=== PATIENT | female | born 1945 | race Hispanic/Latino ===

== ENCOUNTER → 2018-01-08 | Outpatient (CLI) | payer MEDICARE ==
[~2018-01-08] MED LIST: LEVOTHYROXINE88 MCG PO; LOSARTAN POTASS25 MG PO; MELOXICAM7.5 MG PO; OXYBUTYNIN CHLOR5 M1 PO; PRAVASTATIN SOD20 MG PO; TRIAMTERENE-HCTZ1 EA PO
--- NOTE | 2018-01-08 11:28 | Diagnostic Imaging Report ---
PROCEDURE:X-RAY PELVIS, AP VIEW COMPARISON:None. INDICATIONS:FEMALE GENITAL PROLAPSE FINDINGS: No acute, displaced fracture or dislocation. No osseous destructive lesions. Hip and sacroiliac joints are intact, as is the symphysis pubis. Pelvic stimulator device body is partially visualized projecting over the superolateral left iliac wing. Lead projects over the left hemipelvis. Soft tissues otherwise unremarkable. CONCLUSION: No acute osseous abnormality. Dictated by: Carmelo Rangel M.D. on 01/08/2018 at 11:33 Electronically approved by: Carmelo Rangel M.D. on 01/08/2018 at 11:33
--- NOTE | 2018-01-08 11:28 | Diagnostic Imaging Report ---
PROCEDURE:X-RAY LUMBAR SPINE, TWO VIEWS COMPARISON:None. INDICATIONS:FEMALE GENITAL PROLAPSE FINDINGS: There are 5 nonrib-bearing lumbar-type vertebral bodies. No acute displaced fracture or subluxation. Multilevel degenerative disc changes and facet arthropathy worse at L5-S1. Pelvic stimulator device lies within the subcutaneous fat of the left lower back. Lead terminates over the left hemipelvis. Sacroiliac joints are intact. Soft tissues otherwise unremarkable. CONCLUSION: Mild multilevel degenerative disc disease and facet arthropathy of the lumbar spine. Dictated by: Carmelo Rangel M.D. on 01/08/2018 at 11:32 Electronically approved by: Carmelo Rangel M.D. on 01/08/2018 at 11:32
== END ==
LOC: RAD 10:17
PROVIDERS: ATTEND Urology
DX: N81.89 Other female genital prolapse (principal); N95.2 Postmenopausal atrophic vaginitis
CPT/HCPCS: 72100; 72170

== ENCOUNTER → 2018-08-21 | Outpatient (CLI) | payer MEDICARE ==
--- NOTE | 2018-08-21 13:57 | Diagnostic Imaging Report ---
EXAM: SP LUMBAR, COMPLETE MIN 4VW DATE: 08/21/2018 10:35 AM INDICATION: Back pain COMPARISON: None FINDINGS: 5 views of the lumbar spine shows 5 lumbar type vertebrae. Lumbar body heights are maintained. There is narrowing of the L5-S1 disc space and there is grade 1 spondylolisthesis of L4 on L5. The bony fragment adjacent to the anterior superior corner of L5 is likely related to an ununited osteophyte. There is extensive facet sclerosis from L3 through S1. There is an electronic device implanted in the posterior soft tissues of the upper left pelvis with electrode extending through the midportion of the sacrum into the pelvis. IMPRESSION: No acute bony abnormality. 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 A pelvic stimulator electrode is seen. Signed by: Dr. Aurelio Nuñez M.D. on 08/21/2018 1:54 PM
--- NOTE | 2018-08-21 14:01 | Diagnostic Imaging Report ---
EXAM: PELVIS AP 1-2 VIEWS DATE: 08/21/2018 10:35 AM INDICATION: Genital prolapse COMPARISON: None FINDINGS: 2 views of the pelvis were obtained frontal and lateral. No acute bony abnormality is seen. A small sclerotic focus in the proximal left femur may represent a bone infarct. There are degenerative changes seen in the lower lumbar spine with grade 1 spondylolisthesis of L4 and L5. There is an implanted electronic device in the posterior soft tissues of the left pelvis with a stimulator lead extending into the left side of the pelvic cavity through the sacrum. This likely represents an InterStim device. IMPRESSION: No acute bony abnormality. Degenerative changes lower lumbar spine. Electronic device in the left pelvis. Signed by: Dr. Aurelio Nuñez M.D. on 08/21/2018 1:58 PM
== END ==
LOC: RAD 10:20
PROVIDERS: ATTEND Urology
DX: N81.89 Other female genital prolapse (principal); N95.2 Postmenopausal atrophic vaginitis; M54.5 Low back pain; M43.16 Spondylolisthesis, lumbar region
CPT/HCPCS: 72110; 72170

== ENCOUNTER → 2018-11-13 | Outpatient (CLI) | payer MEDICARE ==
--- NOTE | 2018-11-15 16:24 | Diagnostic Imaging Report ---
PROCEDURE:EXTREMITY ULTRASOUND COMPARISON:None. INDICATIONS:Left knee possible Yates's cyst TECHNIQUE:Ultrasound evaluation analysis was performed in the usual manner in the posterior right knee. There is no evidence of a Yates's cyst. CONCLUSION: No evidence of a Yates's cyst. Fam Zuleta D.O. Dictated by: Fam Zuleta D.O. on 11/15/2018 at 16:27 Electronically approved by: Fam Zuleta D.O. on 11/15/2018 at 16:27
== END ==
LOC: US 11:56
PROVIDERS: ATTEND Family Medicine
DX: M25.562 Pain in left knee (principal)
CPT/HCPCS: 76882

== ENCOUNTER → 2018-12-10 | Outpatient (CLI) | payer MEDICARE ==
--- NOTE | 2018-12-10 12:09 | Diagnostic Imaging Report ---
EXAM: Renal Ultrasound INDICATION: CKD stage 3 ^[id number] ^1046 ^CHRONIC KIDNEY DISEASE STAGE III COMPARISON: Pelvic radiographs 08/21/2018. TECHNIQUE: Transverse and longitudinal images of the kidneys and bladder were obtained. FINDINGS: Right Kidney: Length: Measures 9.5 x 4.8 x 4.1 cm Appearance: Normal echogenicity. Collecting system: No hydronephrosis Stones: None Cyst/Mass: None Left Kidney: Length: Measures 9.0 x 4.5 x 4.7 cm Appearance: Normal echogenicity. Collecting system: No hydronephrosis Stones: None Cyst/Mass: None Bladder: Unremarkable in appearance. The left ureteral jet is visualized. The right ureteral jet is not visualized. The prevoid volume is 25.8 cc and the post void volume is 5.8 cc. IMPRESSION: Unremarkable renal ultrasound. Signed by: Dr. Andrew Diop MD on 12/10/2018 12:06 PM
--- NOTE | 2018-12-10 12:09 | Diagnostic Imaging Report ---
EXAM: Renal Ultrasound INDICATION: CKD stage 3 ^[id number] ^1046 ^CHRONIC KIDNEY DISEASE STAGE III COMPARISON: Pelvic radiographs 08/21/2018. TECHNIQUE: Transverse and longitudinal images of the kidneys and bladder were obtained. FINDINGS: Right Kidney: Length: Measures 9.5 x 4.8 x 4.1 cm Appearance: Normal echogenicity. Collecting system: No hydronephrosis Stones: None Cyst/Mass: None Left Kidney: Length: Measures 9.0 x 4.5 x 4.7 cm Appearance: Normal echogenicity. Collecting system: No hydronephrosis Stones: None Cyst/Mass: None Bladder: Unremarkable in appearance. The left ureteral jet is visualized. The right ureteral jet is not visualized. The prevoid volume is 25.8 cc and the post void volume is 5.8 cc. IMPRESSION: Unremarkable renal ultrasound. Signed by: Dr. Andrew Diop MD on 12/10/2018 12:06 PM
== END ==
LOC: US 09:57
PROVIDERS: ATTEND Internal Medicine Nephrology
DX: N18.3 Chronic kidney disease, stage 3 (moderate) (principal)
CPT/HCPCS: 76770; 76857

== ENCOUNTER → 2019-05-13 | Outpatient (CLI) | payer MEDICARE ==
--- NOTE | 2019-05-13 12:21 | Diagnostic Imaging Report ---
EXAMINATION: PELVIS AP 1-2 VIEWS, SACRUM X-RAY INDICATION: Urinary incontinence COMPARISON: Pelvis radiograph of 08/21/2018 FINDINGS: Pelvis: Unchanged position of implanted sacral nerve stimulator electrode which terminates at approximately the level of S3-4. No acute fracture or dislocation. Mild degenerative changes of the lower lumbar spine and both hip joints. Sacrum: No acute fracture or dislocation. Minimal anterolisthesis at L4-5. IMPRESSION: Sacral nerve stimulator electrode in unchanged position. No acute osseous injury. Signed by: Rishi Lacey MD on 05/13/2019 12:18 PM
== END ==
LOC: RESP 11:19
PROVIDERS: ATTEND Urology
DX: N39.41 Urge incontinence (principal)
CPT/HCPCS: 72170; 72220

== ENCOUNTER → 2019-12-08 | Outpatient (CLI) | payer MEDICARE | LOC: RAD 12:42 | PROVIDERS: ATTEND Family Medicine | DX: M79.605 Pain in left leg (principal) | CPT/HCPCS: 93971 ==

== ENCOUNTER → 2023-01-19 | Day surgery (SDC) | payer MEDICARE ==
[2023-01-17 10:50] LABS: BASOPHILS % 0.7 % (0.0-1.0); EOSINOPHILS % 0.5 % (0.0-6.0); HEMATOCRIT 39.9 % (34.2-44.1); HEMOGLOBIN 12.8 g/dL (12.0-16.0); LYMPHOCYTES # (AUTO) 1.4 (1.0-3.2); LYMPHOCYTES % 24.7 % (18.0-39.1); MEAN CORPUSCULAR HEMOGLOBIN 29.8 pg (28-32); MEAN CORPUSCULAR HGB CONC 32.1 g/dL (31-35); MONOCYTES # (AUTO) 0.4 (0.2-0.8); MONOCYTES % 7.7 % (4.4-11.3); NEUTROPHILS # (AUTO) 3.8 (2.1-6.9); PLATELET COUNT 313 x10e3/uL (140-360); RED BLOOD COUNT 4.29 x10e6/uL (3.6-5.1); RED CELL DISTRIBUTION WIDTH 13.1 % (11.7-14.4)
[2023-01-17 11:07] LABS: ANION GAP 12.3 mmol/L (8-16); CALCIUM 10.1 mg/dL (8.4-10.2); CREATININE, SERUM 0.85 mg/dL (0.57-1.11); POTASSIUM 4.3 mmol/L (3.5-5.1)
[~2023-01-19] MED LIST changes: +ACETAMINOPHEN 1000 MG/100 ML 100 ML IV ONE; +ARIMIDEX1 MG PO; +BENICAR20 MG PO; +BUPIVACAINE 0.5%/EPI 30 ML SDV INJ ONE; +FENTANYL CITRATE/PF 100MCG/2 ML INJ ONE; +FUROSEMIDE40 MG PO; +LACTATED RINGER'S 1,000 ML ONE; +LIDOCAINE HCL 1% LOCAL INJ 20 ML VIAL ONE; +METOPROLOL SUCC50 MG PO; +MIDAZOLAM HCL 2 MG/2 ML VIAL ONE; +MYRBETRIQ50 MG; +ONDANSETRON HCL INJ 2MG/ML 2ML 2 MG/ML VIAL ONE; +POVIDONE IODINE 0.05% 0.05 % ML PO ONE; +PROPOFOL IV EMULSION 10 MG/ML 20 ML VIAL ONE
[2023-01-19 10:00] VITALS: TEMP 97
[2023-01-19 10:15] VITALS: BP 158/66; PULSE 52; RESP 16; O2SAT 96
== END | disposition home or self-care (01) ==
LOC: OR 07:28
PROVIDERS: ATTEND Urology
DX: Z45.49 Encounter for adjustment and management of other implanted nervous system device (principal); N39.41 Urge incontinence; I10 Essential (primary) hypertension; E78.5 Hyperlipidemia, unspecified; F32.A Depression, unspecified; E03.9 Hypothyroidism, unspecified; Z01.810 Encounter for preprocedural cardiovascular examination; Z01.812 Encounter for preprocedural laboratory examination; Z01.818 Encounter for other preprocedural examination; Z79.899 Other long term (current) drug therapy; Z85.3 Personal history of malignant neoplasm of breast; Z92.21 Personal history of antineoplastic chemotherapy; Z92.3 Personal history of irradiation
CPT/HCPCS: 36415; 64585; 64595; 71046; 80048; 85025; 88300; 93005; J0131; J0690; J2001; J2250; J2405; J2704; J3010; J7121